=== PATIENT | female | born 1995 | race African-American/Black ===

== ENCOUNTER 2018-08-24 22:15 | Emergency (ER) | payer MEDICAID ==
[~2018-08-24] VITALS: Ht 162.6 cm; Wt 64.0 kg
[2018-08-25] MEDS ORDERED: SODIUM CHLORIDE 0.9% 1,000 ML IV ONE (01:21)
[2018-08-25 01:38] LABS: CLARITY URINE CLOUDY (CLEAR); COLOR URINE YELLOW (YELLOW); KETONES URINE TRACE (NEGATIVE); LEUKOCYTE ESTERASE URINE NEGATIVE (NEGATIVE); NITRITE URINE NEGATIVE (NEGATIVE); OCCULT BLOOD URINE NEGATIVE (NEGATIVE); PH URINE 7.5 (4.5-8.0); PROTEIN URINE NEGATIVE (NEGATIVE); SPECIFIC GRAVITY URINE 1.029 (1.005-1.030)
[2018-08-25 01:47] LABS: *BENZODIAZEPINES SCREEN URINE NEGATIVE (NEGATIVE); *COCAINE SCREEN URINE NEGATIVE (NEGATIVE); METHADONE URINE SCREEN NEGATIVE (NEGATIVE); OPIATES URINE SCREEN NEGATIVE (NEGATIVE); PHENCYCLIDINE URINE SCREEN NEGATIVE (NEGATIVE)
[2018-08-25 01:48] LABS: *AMPHETAMINES SCREEN URINE NEGATIVE (NEGATIVE); *BARBITURATES SCREEN URINE NEGATIVE (NEGATIVE); CANNABINOID URINE SCREEN NEGATIVE (NEGATIVE)
[2018-08-25 01:50] LABS: BASOPHILS % 0.3 % (0.0-2.0); EOSINOPHILS % 0.4 % (0.0-5.0); HEMATOCRIT. 37.8 % (36.0-48.0); HEMOGLOBIN. 12.9 g/dL (12.0-16.0); LYMPHOCYTES % 26.8 % (20.0-50.0); MEAN CORPUSCULAR VOLUME 90.7 fL (81.0-99.0); MEAN PLATELET VOLUME 9.1 fl (7.4-10.4); MONOCYTES % 6.2 % (2.0-8.0); NEUTROPHILS % 66.3 % (40.0-76.0); PLATELET 213 x1000/uL (130-400); RED BLOOD CELL COUNT 4.17 mill/uL (4.2-5.4); RED CELL DISTRIBUTION WIDTH 13.1 % (11.6-14.6)
[2018-08-25 02:01] LABS: CHLORIDE 110 mEq/L (98-107)
[2018-08-25 04:53] VITALS: BP 107/72
== END 2018-08-25 04:45 | disposition home or self-care (01) ==
LOC: ER 22:15
DX: R42 Dizziness and giddiness (principal); M54.9 Dorsalgia, unspecified
CPT/HCPCS: 36415; 80053; 80305; 81003; 81025; 85025; 96360; 99284; J7030

== ENCOUNTER 2020-08-05 10:50 | Emergency (ER) | payer MEDICAID, MEDICARE ==
[~2020-08-05] VITALS: Ht 167.6 cm; Wt 70.0 kg
[2020-08-05 12:36] VITALS: BP 116/86
== END 2020-08-05 12:38 | disposition home or self-care (01) ==
LOC: ER 10:50
DX: S90.562A Insect bite (nonvenomous), left ankle, initial encounter (principal); S90.561A Insect bite (nonvenomous), right ankle, initial encounter; R51.9 Headache, unspecified; W57.XXXA Bitten or stung by nonvenomous insect and other nonvenomous arthropods, initial encounter; Y93.89 Activity, other specified; Y92.89 Other specified places as the place of occurrence of the external cause; Y99.8 Other external cause status
CPT/HCPCS: 99282

== ENCOUNTER 2020-11-26 15:14 | Emergency (ER) | payer BC, MEDICARE ==
[~2020-11-26] VITALS: Ht 162.6 cm; Wt 68.0 kg
[2020-11-26 16:32] LABS: CLARITY URINE CLEAR (CLEAR); COLOR URINE YELLOW (YELLOW); KETONES URINE TRACE (NEGATIVE); LEUKOCYTE ESTERASE URINE NEGATIVE (NEGATIVE); NITRITE URINE NEGATIVE (NEGATIVE); OCCULT BLOOD URINE NEGATIVE (NEGATIVE); PH URINE 5.5 (4.5-8.0); PROTEIN URINE NEGATIVE (NEGATIVE); SPECIFIC GRAVITY URINE 1.024 (1.005-1.030)
[2020-11-26 16:42] LABS: BASOPHILS % 0.7 % (0.0-2.0); EOSINOPHILS % 0.6 % (0.0-5.0); HEMATOCRIT. 37.7 % (36.0-48.0); HEMOGLOBIN. 12.7 g/dL (12.0-16.0); LYMPHOCYTES % 38.5 % (20.0-50.0); MEAN CORPUSCULAR HEMOGLOBIN 30.1 pg (28.0-32.0); MEAN CORPUSCULAR VOLUME 89.7 fL (81.0-99.0); MEAN PLATELET VOLUME 8.6 fl (7.4-10.4); MONOCYTES % 6.2 % (2.0-8.0); PLATELET 267 x1000/uL (130-400); RED BLOOD CELL COUNT 4.21 mill/uL (4.2-5.4); RED CELL DISTRIBUTION WIDTH 13.8 % (11.6-14.6)
[2020-11-26 16:48] LABS: CHLORIDE 109 mEq/L (98-107)
[2020-11-26 17:25] VITALS: BP 109/65
== END 2020-11-26 18:02 | disposition home or self-care (01) ==
LOC: ER 15:14
DX: R35.8 Other polyuria (principal); R35.0 Frequency of micturition
CPT/HCPCS: 36415; 80048; 81003; 81025; 85025; 99283

== ENCOUNTER 2021-01-29 10:12 | Emergency (ER) | payer BC, MEDICARE ==
[~2021-01-29] VITALS: Ht 162.6 cm; Wt 61.0 kg
[2021-01-29 10:23] VITALS: BP 123/79
[2021-01-29] MEDS ORDERED: ACETAMINOPHEN 325MG TABLET PO ONE (10:45)
[2021-01-29] MEDS ORDERED: TETRACAINE 0.5% OPHTH DROPS 4ML LEFTEYE ONE (12:00)
== END 2021-01-29 12:48 | disposition home or self-care (01) ==
LOC: ER 10:35
DX: O26.899 Other specified pregnancy related conditions, unspecified trimester (principal); N64.4 Mastodynia; Z3A.00 Weeks of gestation of pregnancy not specified; E05.90 Thyrotoxicosis, unspecified without thyrotoxic crisis or storm; Z87.891 Personal history of nicotine dependence
CPT/HCPCS: 76801; 99284

== ENCOUNTER 2021-07-16 14:34 | Observation (INO) | payer BC ==
[~2021-07-16] VITALS: Ht 162.6 cm; Wt 79.4 kg
== END 2021-07-16 16:26 | disposition home or self-care (01) ==
LOC: 8 EST LDRP 14:34
PROVIDERS: ADMIT Obstetrics & Gynecology; ATTEND Obstetrics & Gynecology
DX: O26.892 Other specified pregnancy related conditions, second trimester (principal); K64.4 Residual hemorrhoidal skin tags; R10.9 Unspecified abdominal pain; Z3A.27 27 weeks gestation of pregnancy
CPT/HCPCS: 59025; 99281; G0378

== ENCOUNTER 2022-05-11 02:11 | Emergency (ER) | payer BC, OTHER ==
[~2022-05-11] VITALS: Ht 165.1 cm; Wt 67.6 kg
[2022-05-11] MEDS ORDERED: KETOROLAC 60MG/2ML VIAL IM ONE (03:00)
[2022-05-11 05:11] VITALS: BP 112/75
== END 2022-05-11 05:13 | disposition home or self-care (01) ==
LOC: ER 02:11
DX: G43.909 Migraine, unspecified, not intractable, without status migrainosus (principal); R10.9 Unspecified abdominal pain; Z91.010 Allergy to peanuts; Z91.018 Allergy to other foods; Z86.39 Personal history of other endocrine, nutritional and metabolic disease
CPT/HCPCS: 81025; 99282; J1885

== ENCOUNTER 2022-07-29 11:38 | Emergency (ER) | payer MEDICAID, OTHER ==
[~2022-07-29] VITALS: Ht 162.6 cm; Wt 65.0 kg
[2022-07-29 12:28] VITALS: BP 115/75
[2022-07-29] MEDS ORDERED: ERYT1OIN6 LEFTEYE (18:54)
[2022-07-29] MEDS ORDERED: POLY15DR31 LEFTEYE (18:55)
== END 2022-07-29 14:41 | disposition left against medical advice (07) ==
LOC: ER 11:38
DX: Z53.21 Procedure and treatment not carried out due to patient leaving prior to being seen by health care provider (principal); Z91.010 Allergy to peanuts; Z91.018 Allergy to other foods

== ENCOUNTER 2022-07-29 15:05 | Emergency (ER) | payer OTHER ==
[~2022-07-29] VITALS: Ht 162.6 cm; Wt 65.0 kg
[2022-07-29 15:06] VITALS: BP 115/75
[2022-07-29] MEDS ORDERED: ERYT1OIN6 LEFTEYE (18:54)
[2022-07-29] MEDS ORDERED: POLY15DR31 LEFTEYE (18:55)
== END 2022-07-29 19:10 | disposition home or self-care (01) ==
LOC: ER 15:05
DX: H01.005 Unspecified blepharitis left lower eyelid (principal); E05.90 Thyrotoxicosis, unspecified without thyrotoxic crisis or storm; G43.909 Migraine, unspecified, not intractable, without status migrainosus; Z91.010 Allergy to peanuts; Z91.018 Allergy to other foods
CPT/HCPCS: 81025; 99283

== ENCOUNTER 2025-02-22 12:16 | Emergency (ER) | payer MEDICAID, OTHER ==
[~2025-02-22] VITALS: Ht 162.6 cm; Wt 78.4 kg
[~2025-02-22 12:16] MED LIST: ERYT1OIN6 LEFTEYE; POLY15DR31 LEFTEYE
[2025-02-22 12:24] VITALS: BP 130/83; TEMP 36.6; O2SAT 99
[2025-02-22 12:25] VITALS: PULSE 86; RESP 18; O2SAT 98
[2025-02-22 13:36] LABS: BASOPHILS % 0.7 % (0.0-2.0); EOSINOPHILS % 0.5 % (0.0-5.0); HEMOGLOBIN. 12.5 g/dL (12.0-16.0); LYMPHOCYTES % 41.6 % (20.0-50.0); MEAN CORPUSCULAR HEMOGLOBIN 30.6 pg (28.0-32.0); MEAN CORPUSCULAR HGB CONC 33.7 g/dL (31.0-37.0); MEAN CORPUSCULAR VOLUME 90.8 fL (81.0-99.0); MEAN PLATELET VOLUME 8.4 fl (7.4-10.4); MONOCYTES % 7.9 % (2.0-8.0); NEUTROPHILS % 49.3 % (40.0-76.0); PLATELET 349 x1000/uL (130-400); RED BLOOD CELL COUNT 4.07 mill/uL (4.2-5.4); RED CELL DISTRIBUTION WIDTH 14.6 % (11.6-14.6)
[2025-02-22 13:39] LABS: CARBON DIOXIDE 27 mEq/L (21-32); CHLORIDE 104 mEq/L (98-107); POTASSIUM 3.8 mEq/L (3.5-5.1); SODIUM 138 mEq/L (136-145)
[2025-02-22 13:45] LABS: CREATININE 0.8 mg/dL (0.6-1.0); GLUCOSE 79 mg/dL (70-105); UREA NITROGEN BLOOD 9 mg/dL (9-23)
[2025-02-22 13:46] LABS: ALANINE AMINOTRANSFERASE 17 IU/L (10-49); ALBUMIN 4.3 g/dL (3.2-4.8); ASPARTATE AMINOTRANSFERASE 19 IU/L (<34)
[2025-02-22 13:47] LABS: BILIRUBIN DIRECT 0.1 mg/dL (<=3.0); BILIRUBIN TOTAL 0.4 mg/dL (0.1-1.0); PROTEIN TOTAL 7.3 g/dL (6.0-8.3)
[2025-02-22 13:52] LABS: HCG SCREEN NEGATIVE
[2025-02-22 14:37] LABS: CLARITY URINE CLEAR (CLEAR); COLOR URINE YELLOW (YELLOW); GLUCOSE URINE NEGATIVE (NEGATIVE); KETONES URINE NEGATIVE (NEGATIVE); LEUKOCYTE ESTERASE URINE NEGATIVE (NEGATIVE); NITRITE URINE NEGATIVE (NEGATIVE); OCCULT BLOOD URINE NEGATIVE (NEGATIVE); PROTEIN URINE NEGATIVE (NEGATIVE); SPECIFIC GRAVITY URINE 1.013 (1.005-1.030); UROBILINOGEN URINE 0.2 E.U./dL (0.2-1.0)
== END 2025-02-22 16:05 | disposition home or self-care (01) ==
LOC: ER 12:16
DX: R11.2 Nausea with vomiting, unspecified (principal); Z91.018 Allergy to other foods; Z91.010 Allergy to peanuts
CPT/HCPCS: 36415; 80048; 80076; 81003; 84703; 85025; 99283

== ENCOUNTER 2025-05-12 19:05 | Emergency (ER) | payer BC, MEDICAID, OTHER ==
[~2025-05-12] VITALS: Ht 165.1 cm; Wt 78.9 kg
[2025-05-12 19:15] VITALS: TEMP 36.7; O2SAT 96
[2025-05-12 19:48] LABS: BASOPHILS % 0.5 % (0.0-2.0); EOSINOPHILS % 0.7 % (0.0-5.0); HEMATOCRIT. 36.2 % (36.0-48.0); HEMOGLOBIN. 12.3 g/dL (12.0-16.0); LYMPHOCYTES % 32.2 % (20.0-50.0); MEAN PLATELET VOLUME 8.2 fl (7.4-10.4); MONOCYTES % 6.2 % (2.0-8.0); NEUTROPHILS % 60.4 % (40.0-76.0); PLATELET 364 x1000/uL (130-400); RED BLOOD CELL COUNT 4.02 mill/uL (4.2-5.4); RED CELL DISTRIBUTION WIDTH 14.2 % (11.6-14.6)
[2025-05-12 20:02] LABS: CREATININE 0.8 mg/dL (0.6-1.0); UREA NITROGEN BLOOD 9 mg/dL (9-23)
[2025-05-12 20:58] LABS: CLARITY URINE CLOUDY (CLEAR); COLOR URINE YELLOW (YELLOW); GLUCOSE URINE NEGATIVE (NEGATIVE); KETONES URINE TRACE (NEGATIVE); LEUKOCYTE ESTERASE URINE TRACE (NEGATIVE); NITRITE URINE NEGATIVE (NEGATIVE); OCCULT BLOOD URINE 3+ (NEGATIVE); PH URINE 5.5 (4.5-8.0); PROTEIN URINE 1+ (NEGATIVE); SPECIFIC GRAVITY URINE 1.033 (1.005-1.030); UROBILINOGEN URINE 1.0 E.U./dL (0.2-1.0)
[2025-05-12 21:16] LABS: BACTERIA URINE 1+; RBC URINE 15-25 /hpf (0-2); SQUAMOUS EPITHELIAL CELL URINE FEW /lpf (RARE/1+); WBC URINE 0-2 /hpf (0-2)
[2025-05-12 21:17] LABS: INR 1.0
[2025-05-12] MEDS ORDERED: PNV1TABL76 MT (22:23)
[2025-05-12 22:36] VITALS: BP 116/72; PULSE 89; RESP 18; O2SAT 99
== END 2025-05-12 22:39 | disposition home or self-care (01) ==
LOC: ER 19:05
DX: N93.9 Abnormal uterine and vaginal bleeding, unspecified (principal); O20.9 Hemorrhage in early pregnancy, unspecified; N83.201 Unspecified ovarian cyst, right side; Z3A.01 Less than 8 weeks gestation of pregnancy; F10.90 Alcohol use, unspecified, uncomplicated; Y90.9 Presence of alcohol in blood, level not specified
CPT/HCPCS: 36415; 76801; 80048; 81003; 84702; 85025; 86850; 86900; 99284

== ENCOUNTER 2025-05-16 10:35 | Emergency (ER) | payer BC, MEDICAID ==
[~2025-05-16] VITALS: Ht 165.1 cm; Wt 77.0 kg
[~2025-05-16 10:35] MED LIST changes: +PNV1TABL76 MT
[2025-05-16 10:51] VITALS: O2SAT 100
[2025-05-16 11:46] LABS: CLARITY URINE CLOUDY (CLEAR); COLOR URINE YELLOW (YELLOW); GLUCOSE URINE NEGATIVE (NEGATIVE); KETONES URINE TRACE (NEGATIVE); LEUKOCYTE ESTERASE URINE 1+ (NEGATIVE); NITRITE URINE NEGATIVE (NEGATIVE); OCCULT BLOOD URINE 3+ (NEGATIVE); PH URINE 6.5 (4.5-8.0); PROTEIN URINE 1+ (NEGATIVE); SPECIFIC GRAVITY URINE 1.031 (1.005-1.030); UROBILINOGEN URINE 1.0 E.U./dL (0.2-1.0)
[2025-05-16 11:56] LABS: BASOPHILS % 0.5 % (0.0-2.0); EOSINOPHILS % 0.6 % (0.0-5.0); HEMATOCRIT. 36.1 % (36.0-48.0); HEMOGLOBIN. 12.4 g/dL (12.0-16.0); LYMPHOCYTES % 27.8 % (20.0-50.0); MEAN PLATELET VOLUME 8.2 fl (7.4-10.4); MONOCYTES % 5.8 % (2.0-8.0); NEUTROPHILS % 65.3 % (40.0-76.0); PLATELET 352 x1000/uL (130-400); RED BLOOD CELL COUNT 4.00 mill/uL (4.2-5.4); RED CELL DISTRIBUTION WIDTH 14.4 % (11.6-14.6)
[2025-05-16 12:26] LABS: CREATININE 0.8 mg/dL (0.6-1.0)
[2025-05-16 12:27] LABS: UREA NITROGEN BLOOD 10 mg/dL (9-23)
[2025-05-16 12:34] LABS: BACTERIA URINE 2+; RBC URINE 0-2 /hpf (0-2); SQUAMOUS EPITHELIAL CELL URINE 3+ /lpf (RARE/1+)
[2025-05-16 13:52] LABS: B-HCG QUANTITATIVE 12056 mIU/mL (<6)
[2025-05-16] MEDS ORDERED: CEPH500C2 MT (14:04)
[2025-05-16 14:10] VITALS: BP 113/72; PULSE 84; RESP 18; TEMP 36.9; O2SAT 100
== END 2025-05-16 14:12 | disposition home or self-care (01) ==
LOC: ER 10:35
DX: O20.0 Threatened abortion (principal); O26.891 Other specified pregnancy related conditions, first trimester; R82.71 Bacteriuria; Z91.018 Allergy to other foods; Z91.010 Allergy to peanuts; Z3A.01 Less than 8 weeks gestation of pregnancy
CPT/HCPCS: 36415; 76801; 80048; 81003; 81025; 84702; 85025; 86850; 86900; 99284